=== PATIENT | female | born 1945 | race Caucasian/White ===

== ENCOUNTER 2020-12-30 12:33 | Emergency (ER) | payer MEDICARE, BC ==
[2020-12-30 12:39] VITALS: RESP 18; TEMP 97.7
[2020-12-30] MEDS ORDERED: HYDROcodone/APAP 5-325MG 1 EACH TAB PO STA (13:00)
--- NOTE | 2020-12-30 13:31 | XR ---
EXAMINATION TYPE: XR ankle complete LT DATE OF EXAM: 12/30/2020 COMPARISON: NONE HISTORY: Pain TECHNIQUE: 3 views of the left ankle are submitted for evaluation. FINDINGS: There is oblique fracture distal fibula. Overlying soft tissue swelling noted. No additiona l fractures seen. Displacement of 1 mm. IMPRESSION: Oblique fracture distal fibula as above.
[2020-12-30] MEDS ORDERED: traMADol 50 MG STARTER PACK 3 TAB BTL PO STA ×2 (13:46→14:12)
--- NOTE | 2020-12-30 13:47 | ED ---
Lower Extremity Injury HPI - General Chief Complaint: Extremity Injury, Lower Stated Complaint: fall yesterday/foot injury Time Seen by Provider: 12/30/20 12:40 Source: patient Mode of arrival: wheelchair Limitations: no limitations - History of Present Illness Initial Comments: 75-year-old female presents to emergency department with a chief complaint of left ankle pain. Patient reports that incident occurred yesterday whenshe slips and had an inversion injury to the left ankle. Patient reports some mild swelling and tenderness over the lateral malleolus but denies any ecchymosis. Reports the pain is exacerbated with ankle inversion and eversion but alleviated at rest. Reports taking P[place] at home with improvement in symptoms. Denies any numbness or tingling. - Related Data Home Medications Medication Instructions Recorded Confirmed Biotin(Unknown Dose) 1 tab PO DAILY 12/30/20 12/30/20 Calcium(Unknown Dose) 1 tab PO DAILY 12/30/20 12/30/20 Enalapril [Vasotec] 20 mg PO DAILY 12/30/20 12/30/20 Fluticasone Nasal [place] [Flonase 1 spr EA NOSTRIL BID 12/30/20 12/30/20 Nasal [place]] Glimepiride [Amaryl] 2 mg PO AC-BID 12/30/20 12/30/20 Ibuprofen [Motrin] 800 mg PO TID PRN 12/30/20 12/30/20 Loratadine [Claritin] 10 mg PO DAILY 12/30/20 12/30/20 Metoprolol Succinate (ER) [Toprol 100 mg PO DAILY 12/30/20 12/30/20 Xl] Red Yeast Rice(Unknown Dose) 1 tab PO DAILY 12/30/20 12/30/20 Vitamin A(Unknown Dose) 1 cap PO DAILY 12/30/20 12/30/20 Vitamin D3(Unknown Dose) 1 cap PO DAILY 12/30/20 12/30/20 Vitamin E(Unknown Dose) 1 cap PO DAILY 12/30/20 12/30/20 amLODIPine [Norvasc] 10 mg PO DAILY 12/30/20 12/30/20 metFORMIN HCL [Glucophage] 850 mg PO AC-BID 12/30/20 12/30/20 Allergies Allergy/AdvReac Type Severity Reaction Status Date / Time simvastatin AdvReac Muscle & Verified 12/30/20 13:32 Joint Pain Review of Systems ROS Statement: Those systems with pertinent positive or pertinent negative responses have been documented in the HPI. ROS Other: All systems not noted in ROS Statement are negative. Past Medical History Past Medical History: Diabetes Mellitus, Hypertension History of Any Multi-Drug Resistant Organisms: None Reported Past Surgical History: Tubal Ligation Additional Past Surgical History / Comment(s): and reversal of tubal ligation Past Psychological History: No Psychological Hx Reported Past Alcohol Use History: None Reported Past Drug Use History: None Reported General Exam Limitations: no limitations General appearance: alert, in no apparent distress Head exam: Present: atraumatic, normocephalic, normal inspection Eye exam: Present: normal appearance, PERRL, EOMI Pupils: Present: normal accommodation ENT exam: Present: normal exam, normal oropharynx, mucous membranes moist Neck exam: Present: normal inspection, full ROM. Absent: tenderness Respiratory exam: Present: normal lung sounds bilaterally. Absent: respiratory distress Cardiovascular Exam: Present: regular rate, normal rhythm, normal heart sounds Extremities exam: Present: tenderness (lateral malleolus tenderness.), normal capillary refill, other (+2 dorsalis pedis and posterior tibialis bilaterally.). Absent: normal inspection (mild swelling over the left lateral malleolus), full ROM (R range of motion with inversion and eversion of the left ankle) Back exam: Present: normal inspection, full ROM. Absent: tenderness Neurological exam: Present: alert, oriented X3 Psychiatric exam: Present: normal affect, normal mood Skin exam: Present: warm, dry, intact, normal color Course Vital Signs 12/30/20 12:37 Temperature 97.7 F Pulse Rate 73 Respiratory 18 Rate Blood Pressure 167/80 O2 Sat by Pulse 96 Oximetry Procedures - Orthopedic Splinting/Casting Injury #1 Side: left Lower Extremity Injury Location: ankle Lower Extremity Immobilizer: posterior splint, stirrup splint, Edgardo wrap, synth etic pre-padded splint Other Orthopedic Equipment: crutches Medical Decision Making - Medical Decision Making 75-year-old male presents to emergency room with a chief complaint left ankle pain. On physical examination, tenderness over the left lateral malleolus. She is otherwise neurovascularly intact. She was given Payson for pain which improved her symptoms. Will be discharged with a starter pack of tramadol. x- ray reveals a left distal fibula oblique fracture with 1 mm displacement. Posterior splint along with ankle stirrup applied. Patient will follow-up with orthopedics. Return parameters discussed the patient was understanding and agreeable. Case discussed with dr morse Disposition Clinical Impression: Fracture of distal end of left fibula, Left ankle injury Disposition: HOME SELF-CARE Condition: Stable Instructions (If sedation given, give patient instructions): Ankle Fracture (DC) Additional Instructions: Follow-up with simulation specialist. Take prescribed medication as directed. Alternate between Tylenol and Motrin for pain control. Is patient prescribed a controlled substance at d/c from ED?: No Referrals: Jorge A Camarillo MD [Primary Care Provider] - 1-2 days Chandrakant Mclaughlin MD [STAFF PHYSICIAN] - 1-2 days Time of Disposition: 13:44
[2020-12-30 14:24] VITALS: BP 165/85; PULSE 63
== END 2020-12-30 14:26 | disposition home or self-care (01) ==
LOC: EC 12:33
DX: S82.832A Other fracture of upper and lower end of left fibula, initial encounter for closed fracture (principal); E11.9 Type 2 diabetes mellitus without complications; I10 Essential (primary) hypertension; Z79.84 Long term (current) use of oral hypoglycemic drugs; Z79.899 Other long term (current) drug therapy; Z88.8 Allergy status to other drugs, medicaments and biological substances; W01.0XXA Fall on same level from slipping, tripping and stumbling without subsequent striking against object, initial encounter; Y92.009 Unspecified place in unspecified non-institutional (private) residence as the place of occurrence of the external cause
CPT/HCPCS: 29515; 99283

== ENCOUNTER 2022-04-28 18:29 | Emergency (ER) | payer MEDICARE ==
[2022-04-28 20:06] VITALS: TEMP 97.6
--- NOTE | 2022-04-28 20:39 | ED ---
Weakness HPI - General Chief complaint: Weakness Stated complaint: Dizzy,Leg Cramps Time Seen by Provider: 04/28/22 20:08 Source: patient, family, RN notes reviewed Mode of arrival: wheelchair Limitations: no limitations - History of Present Illness Initial comments: Patient is a 76-year-old female presents to the emergency room brought him with and by her son with concerns of a brief episode of confusion early in the day that has resolved along with increased weakness over the last 24 hours. She also reports some decrease in appetite, nausea and 2 episodes of vomiting today. She denies any fevers or chills. She did have some abdominal cramping earlier but reports that after taking a [place] and muscle relaxer those symptoms have resolved. She was also complaining of muscle cramping which also resolved after that medication. She has had poor intake throughout the day today. She states that she had called at approximately 1 month ago and symptoms lasted a few weeks. She also complains of increase in urinary frequency but denies any d ysuria, hematuria, or flank pain. She has a past medical history significant for diabetes and hypertension. She - Related Data Home Medications Medication Instructions Recorded Confirmed Biotin(Unknown Dose) 1 tab PO DAILY 12/30/20 12/30/20 Calcium(Unknown Dose) 1 tab PO DAILY 12/30/20 12/30/20 Enalapril [Vasotec] 20 mg PO DAILY 12/30/20 12/30/20 Fluticasone Nasal [place] [Flonase 1 spr EA NOSTRIL BID 12/30/20 12/30/20 Nasal Grace] Glimepiride [Amaryl] 2 mg PO AC-BID 12/30/20 12/30/20 Ibuprofen [Motrin] 800 mg PO TID PRN 12/30/20 12/30/20 Loratadine [Claritin] 10 mg PO DAILY 12/30/20 12/30/20 Metoprolol Succinate (ER) [Toprol 100 mg PO DAILY 12/30/20 12/30/20 Xl] Red Yeast Rice(Unknown Dose) 1 tab PO DAILY 12/30/20 12/30/20 Vitamin A(Unknown Dose) 1 cap PO DAILY 12/30/20 12/30/20 Vitamin D3(Unknown Dose) 1 cap PO DAILY 12/30/20 12/30/20 Vitamin E(Unknown Dose) 1 cap PO DAILY 12/30/20 12/30/20 amLODIPine [Norvasc] 10 mg PO DAILY 12/30/20 12/30/20 metFORMIN HCL [Glucophage] 850 mg PO AC-BID 12/30/20 12/30/20 Previous Rx's Medication Instructions Recorded Sulfamethox-Tmp 800-160Mg [Bactrim 1 tab PO Q12HR 5 Days #10 tab 04/28/22 DS 800-160 mg] Allergies Allergy/AdvReac Type Severity Reaction Status Date / Time simvastatin AdvReac Muscle & Verified 04/28/22 20:06 Joint Pain Review of Systems ROS Statement: Those systems with pertinent positive or pertinent negative responses have been documented in the HPI. ROS Other: All systems not noted in ROS Statement are negative. Past Medical History Past Medical History: Diabetes Mellitus, Hypertension History of Any Multi-Drug Resistant Organisms: None Reported Past Surgical History: Tubal Ligation Additional Past Surgical History / Comment(s): and reversal of tubal ligation Past Psychological History: No Psychological Hx Reported Smoking Status: Current every day smoker Past Alcohol Use History: None Reported Past Drug Use History: None Reported General Exam Limitations: no limitations General appearance: alert, in no apparent distress Head exam: Present: atraumatic, normocephalic, normal inspection Eye exam: Present: normal appearance, PERRL, EOMI. Absent: scleral icterus, c onjunctival injection, periorbital swelling ENT exam: Present: normal exam Neck exam: Present: normal inspection. Absent: tenderness, meningismus, ly mphadenopathy Respiratory exam: Present: normal lung sounds bilaterally. Absent: respiratory distress, wheezes, rales, rhonchi, stridor Cardiovascular Exam: Present: regular rate, normal rhythm, normal heart sounds. Absent: systolic murmur, diastolic murmur, rubs, gallop, clicks GI/Abdominal exam: Present: soft, normal bowel sounds. Absent: distended, tenderness, guarding, rebound, rigid Extremities exam: Present: normal inspection, full ROM, normal capillary refill. Absent: tenderness, pedal edema, joint swelling, calf tenderness Back exam: Present: normal inspection Neurological exam: Present: alert, oriented X3, CN II-XII intact Psychiatric exam: Present: normal affect, normal mood Skin exam: Present: warm, dry, intact, normal color. Absent: rash Course Vital Signs 04/28/22 04/28/22 20:02 22:06 Temperature 97.6 F Pulse Rate 72 77 Respiratory 20 18 Rate Blood Pressure 120/74 136/76 O2 Sat by Pulse 96 96 Oximetry - Reevaluation(s) Reevaluation #1: EKG shows sinus rhythm with left elbow branch block. Unfortunately no previous EKG available for comparison. No chest pain or shortness of breath. Will add troponin chest x-ray and magnesium level to current pending exams. Time: 21:42 Reevaluation #2: Upon further discussion with patient and son patient with a history of "damage to her heart" however she is unsure if she has had a bundle branch block on her EKG previously. She continues to deny any chest pain or shortness of breath. Her nausea is stable ithout any further episodes of emesis. Chest x-ray is negative for acute cardiopulmonary processes and heart is stable. No indication for further workup at this time. Will discharge home with treatment for UTI. Time: 22:48 Reevaluation #3: Troponin and electrolytes stable. Will discharge home with treatment for UTI. Time: 22:58 Medical Decision Making - Medical Decision Making Due to weakness in episode of tramsient confusion along with nausea and vomiting will check COVID, influenza, CBC, CMP, amylase and lipase along with urinalysis. Patient currently alert with no focal neuro deficits at this time. No evidence of sepsis. - Lab Data Result diagrams: 04/28/22 20:37 04/28/22 20:37 Lab Results 04/28/22 04/28/22 04/28/22 Range/Units 20:37 20:37 20:37 WBC 11.6 H (3.8-10.6) k/uL RBC 5.16 (3.80-5.40) m/uL Hgb 14.2 (11.4-16.0) gm/dL Hct 44.1 (34.0-46.0) % MCV 85.5 (80.0-100.0) fL MCH 27.5 (25.0-35.0) pg MCHC 32.2 (31.0-37.0) g/dL RDW 13.7 (11.5-15.5) % Plt Count 341 (150-450) k/uL MPV 7.5 Neutrophils % 72 % Lymphocytes % 20 % Monocytes % 5 % Eosinophils % 1 % Basophils % 1 % Neutrophils # 8.3 H (1.3-7.7) k/uL Lymphocytes # 2.3 (1.0-4.8) k/uL Monocytes # 0.5 (0-1.0) k/uL Eosinophils # 0.2 (0-0.7) k/uL Basophils # 0.1 (0-0.2) k/uL Sodium (137-145) mmol/L Potassium (3.5-5.1) mmol/L Chloride (98-107) mmol/L Carbon Dioxide (22-30) mmol/L Anion Gap mmol/L BUN (7-17) mg/dL Creatinine (0.52-1.04) mg/dL Est GFR (CKD-EPI)AfAm (>60 ml/min/1.73 sqM) Est GFR (CKD-EPI)NonAf (>60 ml/min/1.73 sqM) Glucose (74-99) mg/dL Calcium (8.4-10.2) mg/dL Magnesium (1.6-2.3) mg/dL Total Bilirubin (0.2-1.3) mg/dL AST (14-36) U/L ALT (4-34) U/L Alkaline Phosphatase (38-126) U/L Total Protein (6.3-8.2) g/dL Albumin (3.5-5.0) g/dL Amylase (30-110) U/L Lipase (23-300) U/L Urine Color Urine Appearance (Clear) Urine pH (5.0-8.0) Ur Specific [place] (1.001-1.035) Urine Protein (Negative) Urine Glucose (UA) (Negative) Urine Ketones (Negative) Urine Blood (Negative) Urine Nitrite (Negative) Urine Bilirubin (Negative) Urine Urobilinogen (<2.0) mg/dL Ur Leukocyte Esterase (Negative) Urine RBC (0-5) /hpf Urine WBC (0-5) /hpf Ur Squamous Epith Cells (0-4) /hpf Urine Bacteria (None) /hpf Hyaline Casts (0-2) /lpf Urine Mucus (None) /hpf Coronavirus (PCR) Detected A (Not Detectd) Influenza Type A RNA Not Detected (Not Detectd) Influenza Type B (PCR) Not Detected (Not Detectd) 04/28/22 04/28/2204/28/22 Range/Units 20:37 20:37 22:30 WBC (3.8-10.6) k/uL RBC (3.80-5.40) m/uL Hgb (11.4-16.0) gm/dL Hct (34.0-46.0) % MCV (80.0-100.0) fL MCH (25.0-35.0) pg MCHC (31.0-37.0) g/dL RDW (11.5-15.5) % Plt Count (150-450) k/uL MPV Neutrophils % % Lymphocytes % % Monocytes % % Eosinophils % % Basophils % % Neutrophils # (1.3-7.7) k/uL Lymphocytes # (1.0-4.8) k/uL Monocytes # (0-1.0) k/uL Eosinophils # (0-0.7) k/uL Basophils # (0-0.2) k/uL Sodium 136 L (137-145) mmol/L Potassium 3.9 (3.5-5.1) mmol/L Chloride 104 (98-107) mmol/L Carbon Dioxide 21 L (22-30) mmol/L Anion Gap 11 mmol/L BUN 22 H (7-17) mg/dL Creatinine 0.85 (0.52-1.04) mg/dL Est GFR (CKD-EPI)AfAm 78 (>60 ml/min/1.73 sqM) Est GFR (CKD-EPI)NonAf 68 (>60 ml/min/1.73 sqM) Glucose 263 H (74-99) mg/dL Calcium 9.0 (8.4-10.2) mg/dL Magnesium 2.1 (1.6-2.3) mg/dL Total Bilirubin 0.4 (0.2-1.3) mg/dL AST 20 (14-36) U/L ALT 14 (4-34) U/L Alkaline Phosphatase 124 (38-126) U/L Total Protein 7.2 (6.3-8.2) g/dL Albumin 4.2 (3.5-5.0) g/dL Amylase 48 (30-110) U/L Lipase 158 (23-300) U/L Urine Color Yellow Urine Appearance Cloudy H (Clear) Urine pH 6.0 (5.0-8.0) Ur Specific [place] 1.022 (1.001-1.035) Urine Protein 1+ H (Negative) Urine Glucose (UA) 4+ H (Negative) Urine Ketones 1+ H (Negative) Urine Blood Negative (Negative) Urine Nitrite Negative (Negative) Urine Bilirubin Negative (Negative) Urine Urobilinogen <2.0 (<2.0) mg/dL Ur Leukocyte Esterase Trace H (Negative) Urine RBC 4 (0-5) /hpf Urine WBC 5 (0-5) /hpf Ur Squamous Epith Cells 10 H (0-4) /hpf Urine Bacteria Occasional H (None) /hpf Hyaline Casts 7 H (0-2) /lpf Urine Mucus Moderate H (None) /hpf Coronavirus (PCR) (Not Detectd) Influenza Type A RNA (Not Detectd) Influenza Type B (PCR) (Not Detectd) - EKG Data EKG Comments: Sinus rhythm, left bundle branch block and ventricular rate 67 bpm, MA interval 177 ms, QRS duration 163 ms, QT/QTC 473/489 ms, MA T axis sees 71, -11, 118 When compared to previous EKG there are: previous EKG unavailable Disposition Clinical Impression: UTI (urinary tract infection) Narrative: COVID positive without new COVID diagnosis. COVID infection with the last 30 days. Disposition: HOME SELF-CARE Condition: Stable Instructions (If sedation given, give patient instructions): Urinary Tract Infection in Women (ED) Prescriptions: Sulfamethox-Tmp 800-160Mg [Bactrim DS 800-160 mg] 1 tab PO Q12HR 5 Days #10 tab Is patient prescribed a controlled substance at d/c from ED?: No Referrals: None,Stated [Primary Care Provider] - 1-2 days ([facility]) Time of Disposition: 22:58
[2022-04-28 21:02] LABS: Basophils # (A) 0.1 k/uL (0-0.2); Basophils % (A) 1 %; Eosinophils # (A) 0.2 k/uL (0-0.7); Eosinophils % (A) 1 %; HCT 44.1 % (34.0-46.0); HGB 14.2 gm/dL (11.4-16.0); Lymphocytes # (A) 2.3 k/uL (1.0-4.8); Lymphocytes % (A) 20 %; MCH 27.5 pg (25.0-35.0); MCHC 32.2 g/dL (31.0-37.0); MCV 85.5 fL (80.0-100.0); Mean Platelet Volume 7.5; Monocytes # (A) 0.5 k/uL (0-1.0); Monocytes % (A) 5 %; Neutrophils # (A) 8.3 k/uL (1.3-7.7); Neutrophils % (A) 72 %; Platelet Count 341 k/uL (150-450); RBC 5.16 m/uL (3.80-5.40); RDW 13.7 % (11.5-15.5); WBC 11.6 k/uL (3.8-10.6)
[2022-04-28 21:04] LABS: Appearance,Urine Cloudy (Clear); Bacteria,Urine Occasional /hpf; Bilirubin,Urine Negative (Negative); Blood,Urine Negative (Negative); Color,Urine Yellow; Glucose,Urine (UA) 4+ (Negative); Hyaline Casts,Urine 7 /lpf (0-2); Ketones,Urine 1+ (Negative); Leukocyte Esterase,Urine Trace (Negative); Mucus,Urine Moderate /hpf; Nitrite,Urine Negative (Negative); Protein,Urine 1+ (Negative); RBC,Urine 4 /hpf (0-5); Specific Gravity,Urine 1.022 (1.001-1.035); Squamous Epithelial Cell,Urine 10 /hpf (0-4); Urobilinogen,Urine <2.0 mg/dL (<2.0); WBC,Urine 5 /hpf (0-5)
[2022-04-28 21:20] LABS: Albumin 4.2 g/dL (3.5-5.0); Potassium 3.9 mmol/L (3.5-5.1); Total Bilirubin 0.4 mg/dL (0.2-1.3); Total Protein 7.2 g/dL (6.3-8.2)
[2022-04-28 22:33] VITALS: BP 136/76; PULSE 77; RESP 18
--- NOTE | 2022-04-28 22:40 | XR ---
EXAMINATION TYPE: XR chest 2V DATE OF EXAM: 04/28/2022 COMPARISON: NONE HISTORY: Weakness TECHNIQUE: 2 view FINDINGS: Heart is normal. Lungs are clear of infiltrate. No heart failure. There are no hilar masses . Costophrenic angles are clear. IMPRESSION: No active cardiopulmonary disease. Normal heart.
== END 2022-04-28 23:00 | disposition home or self-care (01) ==
LOC: EC 18:29
DX: N39.0 Urinary tract infection, site not specified (principal); E11.9 Type 2 diabetes mellitus without complications; I10 Essential (primary) hypertension; F17.200 Nicotine dependence, unspecified, uncomplicated; Z20.822 Contact with and (suspected) exposure to COVID-19; Z88.8 Allergy status to other drugs, medicaments and biological substances
CPT/HCPCS: 36415; 71046; 80053; 81001; 82150; 83690; 83735; 84484; 85025; 87502; 87635; 93005